=== PATIENT | male | born 1940 | race Caucasian/White ===

== ENCOUNTER 2017-03-23 11:46 | Day surgery (SDC) | payer OTHER ==
[2017-03-23] MEDS ORDERED: CEFAZOLIN 2 GM/50 ML (PMX) 50 ML IVPB (13:17)
[2017-03-23] MEDS ORDERED: LIDOCAINE 4% SOLUTION 50 ML BTL (13:24)
[2017-03-23] MEDS ORDERED: MIDAZOLAM 1 MG/ML 2 ML INJ (14:03)
[2017-03-23] MEDS ORDERED: FENTAnyl 50 MCG/ML VIAL (14:03)
== END 2017-03-23 14:56 | disposition home or self-care (01) ==
LOC: GIL 11:46
DX: I85.00 Esophageal varices without bleeding (principal); K76.6 Portal hypertension; K31.89 Other diseases of stomach and duodenum; K43.9 Ventral hernia without obstruction or gangrene; K57.90 Diverticulosis of intestine, part unspecified, without perforation or abscess without bleeding; K64.9 Unspecified hemorrhoids; E11.9 Type 2 diabetes mellitus without complications; E78.5 Hyperlipidemia, unspecified
CPT/HCPCS: 43239; 82962